=== PATIENT | male | born 1950 ===

== ENCOUNTER → 2017-12-06 | Outpatient (CLI) | payer MEDICARE, OTHER | LOC: GMAL 14:27 | PROVIDERS: ATTEND Family Medicine | DX: R35.0 Frequency of micturition (principal); Z12.5 Encounter for screening for malignant neoplasm of prostate | CPT/HCPCS: 87086; G0103 ==

== ENCOUNTER → 2019-08-29 | Outpatient (CLI) | payer MEDICARE, OTHER | LOC: GMAL 11:44 | PROVIDERS: ATTEND Family Medicine | DX: Z12.5 Encounter for screening for malignant neoplasm of prostate (principal); Z79.899 Other long term (current) drug therapy | CPT/HCPCS: 84443; G0103 ==

== ENCOUNTER → 2020-01-31 | Outpatient (CLI) | payer MEDICARE, OTHER ==
--- NOTE | 2020-01-31 09:49 | RAD ---
EXAM DESCRIPTION: Pelvis CLINICAL HISTORY: 69 years Male, HIP PN COMPARISON: None. FINDINGS: Single AP view of the pelvis shows no displaced pelvic fracture. No hip joint space narrowing. The pubic symphysis and sacroiliac joints are unremarkable. IMPRESSION: Negative exam. Electronically signed by: Moustapha iWlks MD 01/31/2020 9:47 AM CDT
--- NOTE | 2020-01-31 09:51 | RAD ---
EXAM DESCRIPTION: Knee,Left Complete CLINICAL HISTORY: 69 years Male, KNEE PN COMPARISON: None. FINDINGS: Three views of the left knee show no acute fracture or malalignment. No joint effusion. Moderately advanced tricompartmental degenerative changes including joint space narrowing and osteophyte formation, worse in the medial compartment. IMPRESSION: Moderately advanced tricompartmental degenerative changes, worse medially. Electronically signed by: Moustapha Wilks MD 01/31/2020 9:49 AM CDT
== END ==
LOC: RAD 09:10
PROVIDERS: ATTEND Orthopaedic Surgery
DX: M17.12 Unilateral primary osteoarthritis, left knee (principal); M25.552 Pain in left hip